=== PATIENT | female | born 1995 | race Caucasian/White ===

== ENCOUNTER 2019-01-03 14:24 | Emergency (ER) | payer OTHER ==
[~2019-01-03] VITALS: Ht 170.2 cm; Wt 68.2 kg
[2019-01-03] MEDS ORDERED: ALBU8HFA PO (15:29)
[2019-01-03] MEDS ORDERED: GUAI473S11 PO (15:29)
[2019-01-03 16:08] VITALS: BP 123/105
[2019-01-04] MEDS ORDERED: ONDA4TAB6 PO (02:14)
[2019-01-04] MEDS ORDERED: POTA10TA15 PO (02:14)
== END 2019-01-03 16:10 | disposition home or self-care (01) ==
LOC: ER 14:25
DX: J20.9 Acute bronchitis, unspecified (principal); R53.1 Weakness; F12.90 Cannabis use, unspecified, uncomplicated
CPT/HCPCS: 99283

== ENCOUNTER 2019-01-03 23:05 | Emergency (ER) | payer OTHER ==
[~2019-01-03] VITALS: Ht 170.2 cm; Wt 61.8 kg
[~2019-01-03 23:05] MED LIST: ALBU8HFA PO; GUAI473S11 PO
[2019-01-03] MEDS ORDERED: ondansetron 4mg rapidly disintigrating tab PO ONE (23:40)
[2019-01-03] MEDS ORDERED: normal saline 1000ML IV soln IVB ONE (23:50)
[2019-01-03] MEDS ORDERED: ondansetron/PF 4mg/2ml inj IV ONE (23:50)
[2019-01-03] MEDS ORDERED: LORazepam 2 mg/ml vial IV ONE (23:50)
[2019-01-04 00:13] LABS: ALANINE AMINOTRANSFERASE 24 U/L (12-78); ALBUMIN 4.7 G/DL (3.4-5.0); ALBUMIN/GLOBULIN RATIO 1.2 (1.1-1.5); ALKALINE PHOSPHATASE 99 IU/L (46-116); ANION GAP 17 (8-16); ASPARTATE AMINO TRANSFERASE 14 U/L (10-37); BILIRUBIN,TOTAL 0.7 MG/DL (0.1-1.0); BLOOD UREA NITROGEN 7 MG/DL (7-18); BUN/CREATININE RATIO 9.2 (6.6-38.0); CHLORIDE 100 MMOL/L (99-107); CREATININE 0.76 MG/DL (0.40-0.90); GLUCOSE 105 MG/DL (70-104); LIPASE 158 U/L (73-393); SODIUM 136 MMOL/L (135-145); TOTAL CARBON DIOXIDE 19.3 MMOL/L (24-32); TOTAL PROTEIN 8.5 G/DL (6.4-8.2); eGFR > 90 ML/MIN
[2019-01-04 00:15] LABS: URINE HCG POSITIVE (NEG)
[2019-01-04 00:17] LABS: POTASSIUM 2.8 MMOL/L (3.5-5.1)
[2019-01-04] MEDS ORDERED: potassium Cl 20 mEq SR tablet PO STA (00:20)
[2019-01-04 00:24] LABS: URINE AMPHETAMINE SCREEN NEGATIVE (Neg); URINE BARBITUATE SCREEN NEGATIVE (Neg); URINE BENZODIAZEPINES SCREEN NEGATIVE (Neg); URINE CANNABINOID SCREEN POSITIVE (Neg); URINE COCAINE SCREEN NEGATIVE (Neg); URINE METHADONE SCREEN NEGATIVE (Neg); URINE OPIATE SCREEN POSITIVE (Neg); URINE PHENCYCLIDINE SCREEN NEGATIVE (Neg)
[2019-01-04 00:56] LABS: BASOPHILS # (AUTO) 0.1 X10'3 (0-0.2); BASOPHILS % (AUTO) 0.3 % (0-1); EOSINOPHILS % (AUTO) 0.1 % (0-6); HEMATOCRIT 42.8 % (35.0-45.0); HEMOGLOBIN 14.9 g/dl (12.0-16.0); LYMPHOCYTES # (AUTO) 1.8 X10'3 (1.1-4.8); LYMPHOCYTES % (AUTO) 8.4 % (21-51); MEAN CORPUSCULAR HEMOGLOBIN 29.7 PG (27.0-31.0); MEAN CORPUSCULAR HGB CONC 34.9 g/dL (33.0-36.5); MEAN CORPUSCULAR VOLUME 85.2 FL (78-98); MEAN PLATELET VOLUME 10.2 FL (7.4-10.4); MONOCYTES # (AUTO) 1.4 X10'3 (0-0.9); MONOCYTES % (AUTO) 6.6 % (2-12); NEUTROPHILS # (AUTO) 18.3 X10'3 (1.8-7.7); NEUTROPHILS % (AUTO) 84.6 % (42-75); PLATELET COUNT 331 X10'3 (140-440); RED BLOOD COUNT 5.03 X10'6 (4.20-5.60); RED CELL DISTRIBUTION WIDTH 13.4 % (11.5-14.5); WHITE BLOOD COUNT 21.6 X10'3 (4.5-11.0)
[2019-01-04 01:18] LABS: CLARITY,URINE SLIGHTLY CLOUDY (Clear); COLOR,URINE YELLOW (Yellow); GLUCOSE, URINE NEGATIVE (Neg); KETONES,URINE >=80 mg/dl (Neg); LEUKOCYTE ESTERASE ,URINE NEGATIVE (Neg); NITRITES, URINE NEGATIVE (Neg); OCCULT BLOOD,URINE MODERATE (Neg); PROTEIN,URINE NEGATIVE (Neg); UROBILINOGEN,URINE 0.2 E.U/dL (0.2-1.0)
[2019-01-04 01:22] LABS: UA COLLECTION TYPE STRAIGHT CATH
[2019-01-04 01:25] LABS: BETA HCG,QUANTITATIVE 73915 mIU/ml
--- NOTE | 2019-01-04 01:26 | NUR ---
US AT BEDSIDE
[2019-01-04 01:35] LABS: BACTERIA,URINE NONE SEEN /HPF (Neg); SQUAMOUS EPITHELIAL CELL,UR MODERATE /LPF (FEW); WBC,URINE 0-4 /HPF (0-4)
[2019-01-04 01:36] LABS: MUCUS STRANDS MANY /LPF (Neg)
--- NOTE | 2019-01-04 02:06 | NUR ---
us back at bedside
[2019-01-04 02:07] VITALS: BP 107/61
[2019-01-04] MEDS ORDERED: ONDA4TAB6 PO (02:14)
[2019-01-04] MEDS ORDERED: POTA10TA15 PO (02:14)
[2019-01-04 05:54] LABS: TOTAL CELLS COUNTED 100
[2019-01-04 05:55] LABS: GIANT PLATELET FEW; PLATELET ESTIMATE NORMAL
== END 2019-01-04 02:42 | disposition home or self-care (01) ==
LOC: ER 23:06
DX: O21.9 Vomiting of pregnancy, unspecified (principal); O99.511 Diseases of the respiratory system complicating pregnancy, first trimester; F12.90 Cannabis use, unspecified, uncomplicated; Z98.890 Other specified postprocedural states; Z79.899 Other long term (current) drug therapy; Z3A.01 Less than 8 weeks gestation of pregnancy
CPT/HCPCS: 36415; 76700; 76801; 76817; 80053; 80305; 81001; 81025; 83690; 84702; 85025; 93005; 96361; 96374; 96375; 99284; J2060; J2405; J7030